=== PATIENT | female | born 1945 | race Caucasian/White ===

== ENCOUNTER → 2017-01-16 | Outpatient (CLI) | payer OTHER ==
[2015-09-13 05:58] VITALS: BP 206/98
--- NOTE | 2017-01-18 12:24 | MG ---
HISTORY: SCREENING Comparison: 01/11/2016, 12/06/2014 FINDINGS: CC and MLO projections of the right and left breast were obtained. Scattered fibroglandular tissue i s present with stable asymmetries bilaterally. No significant architectural distortion, mass or clus tered microcalcifications can be observed to suggest malignancy. No skin thickening or nipple retrac tion is appreciated. No pathological lymphadenopathy can be identified. Punctate, benign-appearing calcifications are noted bilaterally. IMPRESSION: NO RADIOGRAPHIC EVIDENCE OF MALIGNANCY. ACR CATEGORY 2: Benign findings. FOLLOW-UP EXAM 1 YEAR. Diagnostic CAD was utilized and reviewed. * 0 (ZERO) - ASSESSMENT INCOMPLETE; ADDITIONAL IMAGING IS NEEDED. * 1/1 (ONE) - NEGATIVE. * 2/II (TWO) - BENIGN FINDINGS. * 3/III (THREE) - PROBABLY BENIGN FINDING; SHORT INTERVAL FOLLOW-UP SUGGESTED. * 4/IV (FOUR) - SUSPICIOUS ABNORMALITY; BIOPSY SHOULD BE CONSIDERED. * 5/V - HIGHLY SUSPICIOUS OF MALIGNANCY; BIOPSY SHOULD BE PERFORMED. A NEGATIVE X-RAY REPORT SHOULD NOT DELAY BIOPSY IF A DOMINANT OR CLINICALLY SUSPICIOUS MASS IS PRESENT; 4 TO 8 PERCENT OF CANCERS ARE NOT IDENTIFIED BY X-RAY. A NEGA TIVE REPORT MAY REINFORCE THE CLINICAL IMPRESSION. ADENOSIS AND DENSE BREASTS MAY OBSCURE AN UNDERLY ING NEOPLASM. Reported By:
== END ==
LOC: RAD 13:04
PROVIDERS: ATTEND Specialist
DX: Z12.31 Encounter for screening mammogram for malignant neoplasm of breast (principal)
CPT/HCPCS: 77067

== ENCOUNTER 2019-06-22 21:35 | Observation (INO) ==
[2019-06-22 21:53] VITALS: BMI 20.4
--- NOTE | 2019-06-22 22:12 | DR.CP ---
HPI - Time Seen Time seen: 22:10 - PCP Primary Care Physician: OSMAN - HPI Comment HPI Comment: pATIENT COMPLAINT OF SPITTING UP SALIVA AFTER EATING AND FOOD GOT STUCK. sTATES SHE HAS A HISTORY OF THIS THAT RESOLVES WITH VOMITING IN PAST. - Complaint Chief Complaint:: PT AMBULATORY IN ED WITH C/O VOMITING SINCE SUPPER. - COVID-19 Coronavirus risk:travel/contact w/high risk person: No Has patient experienced Coronavirus symptoms: No - Reviewed Nurses Notes Review: Yes - Source History Provided: Patient - Mode of Arrival Mode of Arrival: Ambulatory - Timing Onset of Chief Complaint: 06/22/19 Came on: Suddenly Pain: Present Now - Duration How lon Duration: Hours - Location Location of Chest Pain: Chest Chest Pain Radiation Location: None - Context Onset: Other (WHEN EATING) Cardiac Risk Factors: HTN History of: Similar pain in the past (ESOPHAGEAL STRICTURE SYMPTOMS) - Quality Quality: Sharp - Severity Severity: Moderate - Modifying Factors Worsens: Other (DRINKING) Impoves: Nothing - Associated Signs and Symptoms Associated Signs and Symptoms: Nausea/Vomiting PMH - PMH Past Medical History: Yes Past Medical History: Arthritis, Dyslipidemia, Hypertension Past Surgical History: No Surgical History: [employer] Surgery Past Surgical History Comment: D&C - Family History History of Family Medical Conditions: Yes Family Medical History: Diabetes Mellitus, Coronary Artery Disease - Social History Does patient currently use any type of tobacco product: No Have you used tobacco products in the last 12 months: No Type of Tobacco Use: None Does any household member use tobacco: No Alcohol Use: None Do you use any recreational Drugs:: No Lives With: Spouse Lives Where: Home - Travel Risk Coronavirus risk:travel/contact w/high risk person: No Has patient experienced Coronavirus symptoms: No - infectious screening In the last 2 months have you had wt loss of >10#?: NO Have you had fever, night sweats or hemotysis?: No Have you traveled outside the country in the last 6 months?: No Isolation: Standard ROS - Review of Systems Constitutional: No Symptoms Reported Eyes: No Symptoms Reported ENTM: No Symptoms Reported Respiratoy: No Symptoms Reported Cardiovascular: Chest Pain Gastrointestinal/Abdominal: Other (SPITTING UP) Genitourinary: No Symptoms Reported Neurological: No Symptoms Reported Musculoskeletal: No Symptoms Reported Integumentary: No Symptoms Reported Hematologic/Lymphatic: No Symptoms Reported Endocrine: No Symptoms Reported Psychiatric: No Symptoms Reported All Other Systems: Reviewed and Negative PE - General Limitations: No Limitations General Appearance: Alert, In No Apparent Distress - Head Head Exam: Normal Inspection - Eyes Eye exam: Normal Appearance, EOMI - ENT ENT Exam: Normal Exam, Normal Oropharynx - Chest Chest Inspection: Normal Inspection - Respiratory Respiratory Exam: Normal Lung Sounds Bilat Respiratory Exam: Bilateral Clear to Auscultation - Cardiovascular Cardiovascular Exam: Regular Rate Pulse: Normal - Abdominal Exam Abdominal Exam: Normal Inspection, Normal Bowel Sounds, Soft, Tenderness (EPIGASTRIC). negative: Distention, Guarding - Extremities Extremities Exam: Normal Inspection, Full ROM - Back Back Exam: Normal Inspection, Full ROM - Neurologic Neurological Exam: Alert, Oriented X3, CN II-XII Intact - Psychiatric Psychiatric Exam: Normal Mood - Skin Skin Exam: Intact, Normal Color - Vitals Vitals: Temperature 97.8 F Pulse Rate 75 Respiratory Rate 17 Blood Pressure [Left Arm] 161/80 Blood Pressure 188/77 O2 Sat by Pulse Oximetry 96 Course - Treatment Treatment: 2344: CASE DISCUSSED WITH DR. PITTMAN, KEEP NPO GIVE PROTONIX AND GET EKG ROR - XRAY XRAY Interpreted by: Radiologist - EKG Rate: 92 [place]: Normal Rhythm: NSR Block: None Hypertrophy: None ST: Normal - XRAY Xray Findings: CHEST: IMPRESSION No acute cardiopulmonary disease. (ZIGGY SALOMON) Opioid - Opioid Risk Tool Age (Ziggy box if 16-45): No History of Preadolescent Sexual Abuse: No Total: 0 Total Score Risk Category: Low Risk - Diagnosis Discharge Problem: Sudden blockage of esophagus - Discharge Plan Condition: Stable - Follow ups/Referrals Follow ups/Referrals: OSMAN MCCULLOUGH [Primary Care Provider] - 3 days - Instructions
[2019-06-22] MEDS ORDERED: NS 500 ML IV 500 ML IV ONE ×2 (22:22→22:25)
[2019-06-22] MEDS ORDERED: GLUCAGEN IVP ONE (22:22)
[2019-06-22] MEDS ORDERED: LABETALOL HCL IVP ONE (22:25)
[2019-06-22] MEDS ORDERED: GLUCAGEN ONE (22:32)
[2019-06-22] MEDS ORDERED: NORMODYNE INJ 20 MG VIAL ONE (22:32)
[2019-06-22] MEDS ORDERED: ZOFRAN INJ 4 MG VIAL ONE (22:55)
--- NOTE | 2019-06-22 23:00 | RAD ---
HISTORYesophageal bloackage. Been vomiting for a few hours. Pt feels its her gallbladderSTUDYCHEST, 1 VIEWCOMPARISONNoneFINDINGSThe trachea is midline. The cardiac silhouette is unremarkable . The lungs are clear without focal infiltrate or effusion. The bony thorax is unremarkable.IMPRESSIONNo acute cardiopulmonary disease.Electronically signed by: LANA WEBSTER (June 22, 2019 22:58:25)
[2019-06-22] MEDS ORDERED: ZOFRAN INJ 4 MG VIAL IVP ONE (23:14)
[2019-06-22] MEDS ORDERED: PROTONIX INJ 40 MG VIAL IVP ONE (23:48)
[2019-06-23] MEDS ORDERED: PROTONIX INJ 40 MG VIAL ONE (00:01)
[2019-06-23 00:18] LABS: HEMOGLOBIN 13.1 g/dL (12.0-16.0)
[2019-06-23 00:21] LABS: BASOPHILS # (AUTO) 0.1 X10^3/uL (0.0-0.1); BASOPHILS % (AUTO) 0.5 % (0.2-1.0); HEMATOCRIT 38.9 % (36.0-47.0); LYMPHOCYTES # (AUTO) 1.5 X10^3/uL (1.3-2.9); MEAN CORPUSCULAR HEMOGLOBIN 31.5 pg (27.0-34.0); MEAN CORPUSCULAR HGB CONC 33.6 g/dL (33.0-35.0); MEAN CORPUSCULAR VOLUME 93.8 fL (80.0-100.0); MEAN PLATELET VOLUME 8.3 fL (7.4-11.0); MONOCYTES # (AUTO) 0.9 x10^3/uL (0.3-0.8); MONOCYTES % (AUTO) 5.2 % (0.0-13.0); NEUTROPHILS # (AUTO) 14.2 x10^3/uL (2.2-4.8); NEUTROPHILS % (AUTO) 85.3 % (42.0-75.0); PLATELET COUNT 224 X10^3/uL (150.0-450.0); RED BLOOD COUNT 4.15 X10^6/uL (3.5-5.4); RED CELL DISTRIBUTION WIDTH 12.6 % (11.6-16.5); WHITE BLOOD COUNT 16.7 X10^3/uL (3.6-10.0)
[2019-06-23 00:27] LABS: BLOOD UREA NITROGEN 12 mg/dL (7-18); CALCIUM 9.4 mg/dL (8.5-10.1); CHLORIDE 104 mmol/L (98-107); COR NA(FOR HYPERGLY) 143 mmol/L (136-145); CREATININE 0.91 mg/dL (0.55-1.02); SODIUM 141 mmol/L (136-145); TROPONIN I 0.02 ng/mL (0-1.5); eGFR NON BLACK RACES > 60 (>60)
[2019-06-23 00:33] LABS: CKMB % 2.3 % (<4); CREATINE KINASE 43 Units/L (26-192); CREATINE KINASE MB < 1.0 ng/mL (0-4.0)
--- NOTE | 2019-06-23 00:34 | RAD ---
Single lateral chest radiographIndication: Vomiting. Evaluate for esophageal distentionFINDINGSThere is no effusion seen on the lateral view. Heart size is normal. Small hiatal hernia suspected.IMPRESSIONSmall hiatal hernia, without other acute chest process seenElectronically signed by: SIMRAN RAMOS (June 23, 2019 00:32:38)
[2019-06-23] MEDS ORDERED: ZOFRAN INJ 4 MG VIAL IVP PRN (02:00)
[2019-06-23] MEDS ORDERED: ZOFRAN INJ 4 MG VIAL ONE (02:13)
[2019-06-23] MEDS ORDERED: DIPRIVAN VIAL 20 ML ONE (08:54)
[2019-06-23] MEDS ORDERED: XYLOCAINE 2 % (PLAIN) ONE (08:55)
--- NOTE | 2019-06-23 09:29 | OR.IMMED ---
Immediate Post-Op Note - Immediate Post-Op Note Pre-Op Diagnosis: acute dysphagia Post-Op Diagnosis: obstruction of the esophagus with FB ( food bolus ). strticture of the esophagus with HH and esophagitis . Procedure: EGD , ,extraction of food bolus and dilatation of stricture Drains: NONE Complications: none . Condition: Stable (full liquid today .. small meals , Protonix 40 BID .. follow up in2 weeks)
[2019-06-23 12:36] LABS: CKMB % 2.5 % (<4); TROPONIN I 0.02 ng/mL (0-1.5)
[2019-06-23 13:59] VITALS: BP 145/70
[2019-06-23] MEDS ORDERED: PRAVACHOL PO SCH (21:00)
[2019-06-23] MEDS ORDERED: TENORMIN PO SCH (21:00)
[2019-06-24] MEDS ORDERED: PROTONIX TAB 40 MG PO SCH (09:00)
== END 2019-06-23 14:10 | disposition home or self-care (01) ==
LOC: ER 21:47 → MED/SURG 21:47
PROVIDERS: ADMIT Surgery; ATTEND Internal Medicine
DX: Z79.899 Other long term (current) drug therapy; K44.9 Diaphragmatic hernia without obstruction or gangrene; R13.11 Dysphagia, oral phase; R73.09 Other abnormal glucose; K22.2 Esophageal obstruction; T18.128A Food in esophagus causing other injury, initial encounter; X58.XXXA Exposure to other specified factors, initial encounter; I10 Essential (primary) hypertension; K21.0 Gastro-esophageal reflux disease with esophagitis
CPT/HCPCS: 36415; 71010; 71045; 80048; 82550; 82553; 84484; 85025; 93005; 96365; 96367; 96374; 96375; 99284; A4222; C9113; G0378; J1610; J2405; J2704; J3490; J7040